=== PATIENT | male | born 1950 | race Caucasian/White ===

== ENCOUNTER → 2018-03-08 | Outpatient (CLI) | payer OTHER | LOC: LABNPT 15:39 | PROVIDERS: ATTEND Orthopaedic Surgery Sports Medicine | DX: L02.415 Cutaneous abscess of right lower limb (principal) | CPT/HCPCS: 87070; 87075; 87077; 87186; 87205 ==

== ENCOUNTER 2018-09-30 11:54 | Outpatient (CLI) | payer MEDICARE, OTHER ==
[2018-09-30 12:00] VITALS: BP 184/101
== END 2018-09-30 13:40 | disposition home or self-care (01) ==
LOC: SDC 11:54
PROVIDERS: ATTEND Internal Medicine
DX: M00.9 Pyogenic arthritis, unspecified (principal)
CPT/HCPCS: 36569; 76937

== ENCOUNTER → 2023-03-29 | Outpatient (CLI) | payer MEDICARE, OTHER ==
[~2023-03-29] MED LIST: CATHETER FLUSH 10 ML SYR IV PRN; HOLD METFORMIN - RECEIVED CONTRAST 20 ML VIAL IV SCH; IOHEXOL 350 MG/ML 100 ML (OMNIPAQUE 350) VIAL IV ONE; NS 100 ML (IVPB) BAG IV ONE
[2023-03-29 16:57] LABS: CREATININE SERUM 1.01 MG/DL (0.60-1.30)
--- NOTE | 2023-03-29 20:52 | Diagnostic Imaging Report ---
EXAM: CT head, orbits, IAC. EXAM DATE: 03/29/2023. COMPARISON: None. HISTORY: Left orbital lesion. TECHNIQUE: Multiple axial images of the head and orbits were obtained with and without IV contrast. Coronal and sagittal reconstructions were provided. All CT scans use one or more of the following dose optimizing techniques: automated exposure control, MA and/or KvP adjustment based on patient size and exam type or iterative reconstruction. FINDINGS: Surgical changes from bilateral cataract repair. There is mild soft tissue swelling overlying the preseptal post tissues anterior to the globe. There is some central hypoattenuation seen superior to the globe measuring up to 1.5 x 0.7 x 0.8 cm which could represent developing phlegmon. There is no extension of the soft tissue thickening or inflammation within the post septal tissues. The ocular neurovascular bundle and intraocular muscles are normal in appearance. There is diffuse mucosal thickening seen throughout the paranasal sinuses with near complete opacification of the left maxillary sinus, complete opacification of the right maxillary sinus, near complete opacification of the ethmoid sinuses and complete opacification of the frontal sinuses. The sphenoid sinuses are patent. There is no acute intraparenchymal hemorrhage or abnormal extra-axial fluid collection. The ventricles and sulci are normal. No abnormal attenuation of brain parenchyma. No hyperdense vessel. The calvarium is intact. Mastoid air cells are clear. IMPRESSION: 1. Soft tissue thickening seen overlying the preseptal soft tissues of the left orbit. There may be developing phlegmon measuring up to 1.5 cm superior to the globe. No involvement of the post septal tissues. 2. Severe mucosal thickening of the paranasal sinuses concerning for chronic or fungal sinusitis. 3. No acute intracranial abnormality. Report was faxed to Dr. Aguilera at [facility] at 8:36 p.m., by ana lilia. Dictated by: Dictated on workstation # [id number]
== END ==
LOC: LAB FS 16:11
PROVIDERS: ATTEND Ophthalmology
DX: H05.89 Other disorders of orbit (principal)
CPT/HCPCS: 36415; 70470; 70482; 82565; 84520; Q9967

== ENCOUNTER → 2023-04-04 | Outpatient (CLI) | payer MEDICARE, OTHER | LOC: LAB FS 15:44 | PROVIDERS: ATTEND Ophthalmology | DX: H00.034 Abscess of left upper eyelid (principal) | CPT/HCPCS: 87070 ==